=== PATIENT | female | born 1975 | race African-American/Black ===

== ENCOUNTER 2017-08-27 02:09 | Inpatient (IN) ==
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
[2017-08-27] MEDS ORDERED: ONDANSETRON 4 MG/2 ML VIAL IV PRN ×2 (02:58→08:45)
[2017-08-27] MEDS ORDERED: ACETAMINOPHEN 325 MG TABLET PO PRN (02:58)
[2017-08-27 03:50] LABS: Basophils # 0.1 10*3/uL (0.0-0.2); Basophils % 0.5 % (0.0-0.8); Eosinophils % 0.4 % (0.00-10.9); Hematocrit 25.4 VOL% (35.7-47.0); Immature Granulocytes % 0.4 %; Immature Granulocytes Absolute 0.04 #; Lymphocytes # 1.1 10*3/uL (1.4-4.0); Lymphocytes % 11.2 % (21.3-54.2); Mean Corpuscular HGB Conc 31.5 GM/DL (32-36); Mean Corpuscular Hemoglobin 22 PG (27-34); Mean Corpuscular Volume 70.8 FL (87-102); Mean Platelet Volume 12.3 FL (9.6-12.0); Monocytes # 0.6 10*3/uL (0.11-0.8); Monocytes % 6.2 % (1.7-12.7); Neutrophils # 8.2 10*3/uL (1.4-7.4); Neutrophils % 81.3 % (38.7-73.9); Platelet Count 245 T/CUMM (130-400); Red Blood Count 3.59 MC/CUMM (3.8-5.5); White Blood Count 10.1 T/CUMM (4-12)
[2017-08-27 04:10] LABS: Alanine Aminotransferase 17 U/L (13-56); Albumin 3.3 G/DL (3.4-5.0); Alkaline Phosphatase 44 U/L (45-117); Aspartate Amino Transferase 17 U/L (0-37); Bilirubin,Total < 0.39 MG/DL (0.2-1.0); Blood Urea Nitrogen 8 MG/DL (7-18); Calcium 8.7 MG/DL (8.5-10.1); Glucose 105 MG/DL (74-106); Osmolality,Calculated 278.3 MOS/KG (273-304); Sodium 141 MMOL/L (136-145); Total Protein 6.6 G/DL (6.4-8.3)
[2017-08-27] MEDS: DEXTROSE 5% LACTATED RINGERS 1,000 ML IV SCH ×4 (04:46→21:00)
[2017-08-27 05:35] LABS: Hypochromasia 1+; Microcytosis Slight
[2017-08-27 05:36] LABS: Giant Platelets Few; Platelet Estimate Adequate
--- NOTE | 2017-08-27 06:43 | Order Completion Report ---
See report scanned to EMR
[2017-08-27 07:33] LABS: CKMB % 0.9 %; Troponin I Only 0.017 NG/ML (0.00-0.045)
--- NOTE | 2017-08-27 08:04 | XRay Report ---
History: Hip pain. Possible right femoral neck fracture Date: 08/27/2017 Study: Right hip 3 views There is no fracture, dislocation, or focal destructive osseous abnormality. Impression: No acute right hip abnormality identified PROCEDURE INTERPRETED AT [facility] DEPARTMENT OF RADIOLOGY Final Report Signed by: Dr. Patience Spangler
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
[2017-08-27] MEDS ORDERED: ALUMINUM/MAGNES/SIMETH MAX STR 30 ML UDCUP PO PRN (08:45)
[2017-08-27] MEDS ORDERED: BISACODYL 5 MG TABLET PO PRN (08:45)
[2017-08-27] MEDS ORDERED: HYDROmorphone 2 MG/1 ML VIAL IV PRN (08:45)
[2017-08-27] MEDS ORDERED: ALBUTEROL 2.5 MG/3 ML NEB RESP TX PRN (08:51)
[2017-08-27] MEDS ORDERED: INFLUENZA VIRUS VACCINE 0.5 ML SYRINGE IM ONE (09:00)
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
[2017-08-27 09:26] LABS: % Iron Saturation 2.7 % (18-50)
[2017-08-27] MEDS: KETOROLAC 15 MG/1 ML VIAL IV SCH ×3 (09:48→20:07)
[2017-08-27] MEDS: PANTOPRAZOLE 40 MG TABLET PO SCH (09:49)
[2017-08-27] MEDS: DOCUSATE SODIUM 100 MG CAPSULE PO SCH ×2 (09:49→20:07)
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
[2017-08-27 10:11] LABS: Apearance,Urine Slightly Hazy (Clear); Bacteria,Urine Occasional /HPF (Few); Bilirubin,Urine Negative (Negative); Blood, Urine Negative (Negative); Glucose,Urine (UA) Negative (Negative); Ketones,Urine Negative (Negative); Mucus,Urine Few /LPF (Occasional); Nitrite,Urine Negative (Negative); Protein,Urine Negative; RBC,Urine 2 /HPF (0-4); Squamous Epithelial Cell,Urine Occasional /HPF (0-10); Urine Color Yellow (Yellow); Urine Urobilinogen < 2.0 EU/DL (0.2-1.0)
--- NOTE | 2017-08-27 12:54 | Order Completion Report ---
See report scanned to EMR
[2017-08-27] MEDS: BUDESONIDE/FORMOTEROL 160-4.5 INHALER 6 GM INH SCH ×2 (13:09→20:06)
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
[2017-08-28] MEDS: KETOROLAC 15 MG/1 ML VIAL IV SCH ×4 (02:48→20:39)
[2017-08-28] MEDS: DEXTROSE 5% LACTATED RINGERS 1,000 ML IV SCH ×2 (05:15→12:48)
[2017-08-28 05:48] LABS: Basophils % 1.2 % (0.0-0.8); Eosinophils # 0.1 10*3/uL (0.0-0.87); Eosinophils % 3.9 % (0.00-10.9); Hematocrit 27.9 VOL% (35.7-47.0); Hemoglobin 8.6 GM/DL (12.0-16.0); Immature Granulocytes % 0.3 %; Immature Granulocytes Absolute 0.01 #; Lymphocytes # 1.1 10*3/uL (1.4-4.0); Lymphocytes % 32.1 % (21.3-54.2); Mean Corpuscular HGB Conc 30.8 GM/DL (32-36); Mean Corpuscular Hemoglobin 22 PG (27-34); Mean Corpuscular Volume 69.9 FL (87-102); Monocytes # 0.4 10*3/uL (0.11-0.8); Monocytes % 12.9 % (1.7-12.7); Neutrophils # 1.7 10*3/uL (1.4-7.4); Neutrophils % 49.6 % (38.7-73.9); Platelet Count 264 T/CUMM (130-400); Red Blood Count 3.99 MC/CUMM (3.8-5.5); Red Cell Distribution Width 19.9 % (9.3-17.3); White Blood Count 3.3 T/CUMM (4-12)
[2017-08-28 05:52] LABS: PT Patient Result 10.7 SECS; Partial Thromboplastin Time 26.6 SECS (0-40)
[2017-08-28 06:16] LABS: Hypochromasia 1+; Macrocytosis 1+; Spherocytes Few
[2017-08-28 06:21] LABS: Albumin 3.2 G/DL (3.4-5.0); Bilirubin,Total 0.5 MG/DL (0.2-1.0); Calcium 8.7 MG/DL (8.5-10.1); Osmolality,Calculated 276.4 MOS/KG (273-304); Potassium 3.7 MMOL/L (3.5-5.1); Total Protein 6.6 G/DL (6.4-8.3)
--- NOTE | 2017-08-28 07:49 | Order Completion Report ---
See report scanned to EMR
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
[2017-08-28] MEDS: DOCUSATE SODIUM 100 MG CAPSULE PO SCH ×2 (10:31→20:38)
[2017-08-28] MEDS: PANTOPRAZOLE 40 MG TABLET PO SCH (10:31)
[2017-08-28] MEDS: BUDESONIDE/FORMOTEROL 160-4.5 INHALER 6 GM INH SCH ×2 (10:32→20:41)
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
[2017-08-28] MEDS ORDERED: FUROSEMIDE 40 MG/4 ML VIAL IV ONE (15:29)
--- NOTE | 2017-08-28 15:29 | Orthopedic Progress Note ---
Orthopedics - Subjective Interval history: Alert and oriented 4 Vital signs are stable Able to ambulate today weightbearing through her right hip Sling to right upper extremity with right scapular fracture Neurovascularly intact plan Plan sling to right upper extremity with follow-up in 1 week thank Exam - Constitutional Vitals: Period Temp Pulse Resp BP Sys/Zambrano Pulse Ox Last 24 Hr 97.9 F-98.9 F 42-69 12-25 126-186/57-124 97-100 Results - Labs CBC & BMP: 08/28/17 05:20 08/28/17 05:20 - Diagnostic Findings Procedure: MRI: image reviewed by me, report reviewed by me (no FX R hip) Quality Measures - VTE Contraindication to Pharmacological VTE Prophylaxis: High Risk of Bleeding
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
[2017-08-28] MEDS ORDERED: SODIUM CHLORIDE 0.9% IV ONE (16:00)
[2017-08-28] MEDS ORDERED: IRON DEXTRAN IV ONE (16:00)
[2017-08-28] MEDS: amLODIPine 10 MG TABLET PO SCH (16:36)
[2017-08-28 16:51] LABS: Free T4 (Free Thyroxine) 1.15 NG/DL (0.76-1.46); Thyroid Stimulating Hormone 3.31 uIU/ml (0.358-3.74)
[2017-08-28] MEDS: NIFEdipine 10 MG CAPSULE PO PRN (20:37)
[2017-08-28] MEDS: POLYETHYLENE GLYCOL POWDER 17 GM PACK PO SCH (20:37)
[2017-08-28] MEDS: CARVEDILOL 6.25 MG TABLET PO SCH (20:38)
[2017-08-29] MEDS: KETOROLAC 15 MG/1 ML VIAL IV SCH ×2 (02:49→08:55)
[2017-08-29 07:13] LABS: Blood Urea Nitrogen 6 MG/DL (7-18); Calcium 8.8 MG/DL (8.5-10.1); Glucose 104 MG/DL (74-106); Magnesium 2.1 MG/DL (1.8-2.4); Osmolality,Calculated 274.5 MOS/KG (273-304); Sodium 139 MMOL/L (136-145); Troponin I Only < 0.015 NG/ML (0.00-0.045)
--- NOTE | 2017-08-29 08:03 | Orthopedic Progress Note ---
Orthopedics - Subjective Interval history: Hospital day 2 Vital signs are stable Sling right upper extremity neurovascularly intact Patient still having some trouble ambulating will ask physical therapy see using a cane in the left upper extremity On discharge follow-up in my office 1 week thank you Exam - Constitutional Vitals: Period Temp Pulse Resp BP Sys/Zambrano Pulse Ox Last 24 Hr 96.2 F-98.6 F 51-67 16-20 145-186/77-110 96-100 Results - Labs CBC & BMP: 08/28/17 05:20 08/29/17 05:36 Quality Measures - VTE Contraindication to Pharmacological VTE Prophylaxis: High Risk of Bleeding
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
[2017-08-29] MEDS: POLYETHYLENE GLYCOL POWDER 17 GM PACK PO SCH (08:46)
[2017-08-29] MEDS: CARVEDILOL 6.25 MG TABLET PO SCH (08:47)
[2017-08-29] MEDS: DOCUSATE SODIUM 100 MG CAPSULE PO SCH (08:47)
[2017-08-29] MEDS: amLODIPine 10 MG TABLET PO SCH (08:47)
[2017-08-29] MEDS: PANTOPRAZOLE 40 MG TABLET PO SCH (08:47)
[2017-08-29] MEDS ORDERED: MULTIVITAMIN (INTRINSIC) CAPSULE PO SCH (09:00)
[2017-08-29] MEDS ORDERED: INFLUENZA VIRUS VACCINE 0.5 ML SYRINGE IM ONE (09:30)
[2017-08-29] MEDS: NIFEdipine 10 MG CAPSULE PO PRN (10:56)
[2017-08-29] MEDS: BUDESONIDE/FORMOTEROL 160-4.5 INHALER 6 GM INH SCH (11:57)
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
[2017-08-29 15:49] VITALS: BP 127/92
== END 2017-08-29 15:30 | disposition home or self-care (01) | DRG 563 ==
LOC: N.ED 02:09 → N.CC 03:25 → N.3E 08-28 13:21
PROVIDERS: ADMIT Specialist; ATTEND Specialist